=== PATIENT | male | born 2000 | race Caucasian/White ===

== ENCOUNTER 2022-12-11 22:48 | Emergency (ER) | payer OTHER ==
[~2022-12-11] VITALS: Ht 167.6 cm; Wt 56.7 kg
[2022-12-11 22:53] VITALS: BP 116/72; PULSE 76; RESP 16; TEMP 97.4; O2SAT 100
[2022-12-12] MEDS ORDERED: TETRACAINE HCL/PF 0.5% OPTH 4 ML BTL OP ONE (02:55)
[2022-12-12] MEDS ORDERED: FLUORESCEIN OPTH STRIP 1 MG OP ONE (02:55)
[2022-12-12] MEDS ORDERED: VIGOS OP (03:11)
[2022-12-12 03:20] VITALS: BP 116/72; PULSE 76; RESP 16; TEMP 97.4; O2SAT 100
== END 2022-12-12 03:19 | disposition home or self-care (01) ==
LOC: MED 22:48
DX: S05.01XA Injury of conjunctiva and corneal abrasion without foreign body, right eye, initial encounter (principal); Z79.899 Other long term (current) drug therapy; W50.0XXA Accidental hit or strike by another person, initial encounter; Y93.89 Activity, other specified; Y92.89 Other specified places as the place of occurrence of the external cause; Y99.8 Other external cause status
CPT/HCPCS: 99283